=== PATIENT | female | born 1995 | race Two or more races ===

== ENCOUNTER 2017-02-16 20:34 | Emergency (ER) | payer SELFPAY ==
[2017-02-16 20:42] VITALS: BP 161/96
--- NOTE | 2017-02-16 21:12 | PHYS DOC ---
Past Medical History Past Medical History: Asthma Past Surgical History: No Surgical History Smoking: Cigarettes Alcohol Use: Occasionally Drug Use: None Adult General Chief Complaint Chief Complaint: ABDOMINAL PAIN HPI HPI Patient is a 21 year old female who presents with mild vaginal bleeding starting today with pelvic pain and low back pain. Her last period was on . She usually has very regular menstrual cycles. The bleeding she had today was very mild and has not continued. She has had occasional vaginal discharge. She denies nausea, vomiting, diarrhea, fever, or urinary symptoms. She is sexually active with stable monogamous partner but does not use control or condoms. She is . She does not have a PCP. Her OB doctor is Dr. Wright. Review of Systems Review of Systems Constitutional: Denies fever or chills. [] GI: Denies abdominal pain, nausea, vomiting, bloody stools or diarrhea. [] : Denies dysuria, hematuria or urinary frequency. Reports vaginal bleeding, pelvic pain, and vaginal discharge. Musculoskeletal: Denies joint pain. Reports low-back pain. Integument: Denies rash or skin lesions. [] Neurologic: Denies headache, focal weakness or sensory changes. [] All systems reviewed and negative unless otherwise stated in the HPI. Allergies Allergies Allergies Coded Allergies Type Severity Reaction Last Updated Verified No Known Drug Allergies 11/16/14 No Physical Exam Physical Exam Constitutional: Well developed, well nourished, no acute distress, non-toxic appearance. [] HENT: Normocephalic, atraumatic, oropharynx moist. [] Eyes: PERRLA, EOMI, conjunctiva normal, no discharge. [] Neck: Normal range of motion, no tenderness, supple, no stridor. [] Cardiovascular: Heart rate regular rhythm, no murmur. [] Lungs & Thorax: Bilateral breath sounds clear to auscultation without wheezes, rales, or rhonchi. [] Abdomen: Bowel sounds normal, soft, suprapubic tenderness, no masses, no pulsatile masses. 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 Normal external genitalia. There is mild bleeding from the cervical os. The cervical os is closed. There is no discharge. There is no cervicitis or CMT. There is no adnexal mass or tenderness. Skin: Warm, dry, no erythema, no rash. [] Back: No midline tenderness, no CVA tenderness. [] Extremities: No tenderness, ROM intact, no edema. Distal pulses equal bilaterally. [] Neurologic: Alert and oriented X 3, normal motor function, normal sensory function, no focal deficits noted. [] Psychologic: Affect normal, judgement normal, mood normal. [] Current Patient Data Vital Signs Vital Signs Date Time Temp Pulse Resp B/P Pulse Ox O2 Delivery O2 Flow Rate FiO2 02/16/17 20:42 97.6 96 18 161/96 100 Room Air 97.6 Lab Values Laboratory Tests Test 02/16/17 20:50 Urine Collection Type Unknown Urine Color Yellow Urine Clarity Cloudy Urine pH 7.0 Urine Specific [place] 1.020 Urine Protein Tracemg/dL (NEG-TRACE) Urine Glucose (UA) Negativemg/dL (NEG) Urine Ketones (Stick) Negativemg/dL (NEG) Urine Blood Large (NEG) Urine Nitrite Positive (NEG) Urine Bilirubin Negative (NEG) Urine Urobilinogen Dipstick 1.0mg/dL (0.2 mg/dL) Urine Leukocyte Esterase Small (NEG) Urine RBC 3-5/HPF (0-2) Urine WBC 5-10/HPF (0-4) Urine Squamous Epithelial Cells Mod/LPF Urine Bacteria Many/HPF (0-FEW) Urine Mucus Slight/LPF Microbiology 02/16/17 Wet Prep - Final, Complete WET PREP Final YEAST NONE SEEN TRICHOMONAS NONE SEEN CLUE CELLS NONE SEEN WBCS OCCASIONAL RBCS MANY SQUAMOUS EPS FEW EKG EKG [] Radiology/Procedures Radiology/Procedures [] Course & Med Decision Making Course & Med Decision Making Pertinent Labs and Imaging studies reviewed. (See chart for details) Patient presents with mild vaginal bleeding with pelvic pain and low back pain starting today. On exam, her abdomen is soft and nonsurgical with suprapubic tenderness. There is mild bleeding on pelvic exam without cervicitis, CMT, or adnexal tenderness. The os is closed. Urine hCG is negative. UA is positive for infection. Wet mount is negative. She denies concern for STDs. Patient is discharged home with prescription for Cipro. She is instructed to follow-up for recheck of her urine after completion of the antibiotic. She is instructed to follow-up with her insurance producer for any other abnormal bleeding. Return precautions were discussed. She verbalizes understanding and agrees with plan. Dragon Disclaimer Cheryl Disclaimer This electronic medical record was generated, in whole or in part, using a voice recognition dictation system. Departure Departure Impression: Primary Impression: UTI (urinary tract infection) Disposition: 01 HOME, SELF-CARE Condition: STABLE Referrals: UNKNOWN PCP NAME (PCP) Patient Instructions: Urinary Tract Infection, [id number] Additional Instructions: Your urine was positive for infection. Your pelvic exam was negative for yeast, bacteria, or Trichomonas. Your bleeding appears to be caused by your menstrual cycle, however later than your usual cycle. Please complete all of the prescribed antibiotics for your urinary tract infection. Follow-up for recheck of your urine after completion of the antibiotic. Please follow-up with your insurance producer if you have continued abnormal bleeding. Return to the emergency department if you have any new or concerning symptoms. Scripts Ciprofloxacin Hcl (Cipro)500 Mg Tablet1 Tab PO BID 5 Days Prov:CONCHIS BARTLETT 02/16/17 Problem Qualifiers Primary Impression: UTI (urinary tract infection) Urinary tract infection type: acute cystitis Hematuria presence: without hematuria Qualified Code: N30.00 - Acute cystitis without hematuria CONCHIS BARTLETT Feb 16, 2017 21:12
[2017-02-16 21:45] LABS: BILIRUBIN,URINE NEGATIVE (NEG); GLUCOSE,URINE NEGATIVE (NEG)
[2017-02-16 21:46] LABS: BACTERIA,URINE MANY /HPF (0-FEW); NITRITE,URINE POSITIVE (NEG); PROTEIN,URINE TRACE mg/dL (NEG-TRACE); SQUAMOUS EPITHELIAL CELL,UR MOD /LPF
[2017-02-16] MEDS ORDERED: CIPR500T94 PO (22:39)
== END 2017-02-16 22:49 | disposition home or self-care (01) ==
LOC: ER 20:34
DX: N39.0 Urinary tract infection, site not specified (principal); J45.909 Unspecified asthma, uncomplicated; F17.210 Nicotine dependence, cigarettes, uncomplicated
CPT/HCPCS: 81001; 81025; 87086; 87491; 87591; 99284; Q0111

== ENCOUNTER 2017-10-25 13:05 | Emergency (ER) | payer SELFPAY ==
[~2017-10-25] VITALS: Ht 157.5 cm; Wt 131.5 kg
[~2017-10-25 13:05] MED LIST: CIPR500T94 PO
[2017-10-25 13:23] VITALS: BP 116/76
[2017-10-25] MEDS ORDERED: LIDO:MAALOX:DONNATAL 1:1:1 15 ML SINGLE DOSE SWSW ONE (13:30)
[2017-10-25] MEDS ORDERED: OMEP20CA9 PO (13:57)
--- NOTE | 2017-10-25 13:58 | PHYS DOC ---
Past Medical History Past Medical History: Asthma, GERD Past Surgical History: No Surgical History Alcohol Use: Occasionally Drug Use: None Adult General Chief Complaint Chief Complaint: HEARTBURN/GI DISTRESS [facility] HPI Patient is a 22 year old female with history of acid reflex presenting today with heartburn began a couple minutes prior to coming to the ED. Patient does not take any anti-acids Review of Systems Review of Systems Constitutional: Denies fever or chills [] Eyes: Denies change in visual acuity, redness, or eye pain [] HENT: Denies nasal congestion or sore throat [] Respiratory: Denies cough or shortness of breath [] Cardiovascular: No additional information not addressed in HPI [] GI: heartburn denies nausea, vomiting, bloody stools or diarrhea [] : Denies dysuria or hematuria [] Musculoskeletal: Denies back pain or joint pain [] Integument: Denies rash or skin lesions [] Neurologic: Denies headache, focal weakness or sensory changes [] All other systems were reviewed and found to be within normal limits, except as documented in this note. Current Medications Current Medications Current Medications Medications (Trade) Dose Ordered Sig/Sangeeta Start Time Stop Time Status Last Admin Dose Admin Multi-Ingredient Mouthwash/Gargle (Gi Cocktail Single Dose) 15 ml 1X ONCE 10/25/17 13:30 10/25/17 13:33 DC 10/25/17 13:39 15 ML Allergies Allergies Allergies Coded Allergies Type Severity Reaction Last Updated Verified No Known Drug Allergies 11/16/14 No Physical Exam Physical Exam Constitutional: Well developed, well nourished, no acute distress, non-toxic appearance. [] HENT: Normocephalic, atraumatic, bilateral external ears normal, oropharynx moist, no oral exudates, nose normal. [] Eyes: PERRLA, EOMI, conjunctiva normal, no discharge. [] Neck: Normal range of motion, no tenderness, supple, no stridor. [] Cardiovascular:Heart rate regular rhythm, no murmur [] Lungs & Thorax: Bilateral breath sounds clear to auscultation [] Abdomen: Bowel sounds normal, soft, no tenderness, no masses, no pulsatile masses. [] Skin: Warm, dry, no erythema, no rash. [] Back: No tenderness, no CVA tenderness. [] Extremities: No tenderness, no cyanosis, no clubbing, ROM intact, no edema. [] Neurologic: Alert and oriented X 3, normal motor function, normal sensory function, no focal deficits noted. [] Psychologic: Affect normal, judgement normal, mood normal. [] Current Patient Data Vital Signs Vital Signs Date Time Temp Pulse Resp B/P (MAP) Pulse Ox O2 Delivery O2 Flow Rate FiO2 10/25/17 13:23 98.1 78 18 97 Room Air 98.1 EKG EKG [] Radiology/Procedures Radiology/Procedures [] Course & Med Decision Making Course & Med Decision Making Pertinent Labs and Imaging studies reviewed. (See chart for details) Patient is in the ED with chronic heart burn. She was given GI cocktail. She was discharged with omeprazole. We talked about diet and exercise and following up with a GI doctor chronic heartburn. Dragon Disclaimer Dragon Disclaimer This electronic medical record was generated, in whole or in part, using a voice recognition dictation system. Departure Departure Impression: Primary Impression: Acid reflux Disposition: HOME, SELF-CARE Condition: STABLE Referrals: NO PCP (PCP) ROMAN SWAN MD follow up in one week Patient Instructions: Diet for Gastroesophageal Reflux Disease, Adult, Gastroesophageal Reflux Disease, Adult, [id number] Additional Instructions: You were seen with symptoms consistent of heartburn. You need to take an anti- acid daily like omeprazole. Consider diet that is avoiding spicy fatty foods and exercise. We provided you a automatic presser, call the office and set up a follow-up appointment. Scripts Omeprazole (OMEPRAZOLE) 20 Mg Capsule.dr 1 CAP PO DAILY, #30 CAP 5 Refills Prov: PIYUSH TIMMONS APRN 10/25/17 Problem Qualifiers Primary Impression: Acid reflux Esophagitis presence: esophagitis presence not specified Qualified Codes: K21.9 - Gastro-esophageal reflux disease without esophagitis PIYUSH TIMMONS APRN Oct 25, 2017 13:57
== END 2017-10-25 14:03 | disposition home or self-care (01) ==
LOC: ER 13:05
DX: K21.9 Gastro-esophageal reflux disease without esophagitis (principal); J45.909 Unspecified asthma, uncomplicated
CPT/HCPCS: 99282

== ENCOUNTER 2018-03-21 16:20 | Emergency (ER) | payer OTHER | END 2018-03-21 17:33 | disposition home or self-care (01) | LOC: ER 16:20 | DX: L02.416 Cutaneous abscess of left lower limb (principal); K21.9 Gastro-esophageal reflux disease without esophagitis; J45.909 Unspecified asthma, uncomplicated | CPT/HCPCS: 99283 ==

== ENCOUNTER 2018-07-09 19:44 | Emergency (ER) | payer OTHER ==
[~2018-07-09] VITALS: Ht 157.5 cm; Wt 136.1 kg
[~2018-07-09 19:44] MED LIST changes: +OMEP20CA9 PO; +SULF1TAB24 PO
[2018-07-09 20:15] VITALS: BP 105/56
[2018-07-09] MEDS ORDERED: ERYT1OIN6 OP (20:19)
--- NOTE | 2018-07-09 20:19 | PHYS DOC ---
Past Medical History Past Medical History: Asthma, GERD Past Surgical History: No Surgical History Alcohol Use: Occasionally Drug Use: None Adult General Chief Complaint Chief Complaint: EYE PROBLEMS HPI HPI Patient is a 22 year old female presents to the ED complaining of right eye green discharge 2 days. Patient states her was diagnosed with pink eye. States she has similar symptoms in her right eye. Woke up with her eye crusted over. Patient wears glasses. Does not wear contacts. Denies foreign body sensation, vision changes, eye pain, nausea/vomiting, fever, dizziness or weakness. Review of Systems Review of Systems Constitutional: Denies fever or chills [] Eyes: Complains of right eye green drainage. Denies change in visual acuity, redness, or eye pain [] HENT: Denies nasal congestion or sore throat [] Respiratory: Denies cough or shortness of breath [] Cardiovascular: No additional information not addressed in HPI [] GI: Denies abdominal pain, nausea, vomiting, bloody stools or diarrhea [] Integument: Denies rash or skin lesions [] Neurologic: Denies headache, focal weakness or sensory changes [] All other systems were reviewed and found to be within normal limits, except as documented in this note. Allergies Allergies Allergies Coded Allergies Type Severity Reaction Last Updated Verified No Known Drug Allergies 11/16/14 No Physical Exam Physical Exam Constitutional: Well developed, well nourished, no acute distress, non-toxic appearance. [] HENT: Normocephalic, atraumatic, bilateral external ears normal, right eye conjunctival injection with green discharge. Oropharynx moist, no oral exudates , nose normal. [] Eyes: PERRLA, EOMI, conjunctiva normal, no discharge. [] Neck: Normal range of motion, no tenderness, supple, no stridor. [] Cardiovascular:Heart rate regular rhythm, no murmur [] Lungs & Thorax: Bilateral breath sounds clear to auscultation [] Skin: Warm, dry, no erythema, no rash. [] Neurologic: Alert and oriented X 3, normal motor function, normal sensory function, no focal deficits noted. [] Psychologic: Affect normal, judgement normal, mood normal. [] EKG EKG [] Radiology/Procedures Radiology/Procedures [] Course & Med Decision Making Course & Med Decision Making Pertinent Labs and Imaging studies reviewed. (See chart for details) [] Dragon Disclaimer Dragon Disclaimer This electronic medical record was generated, in whole or in part, using a voice recognition dictation system. Departure Departure Impression: Primary Impression: Conjunctivitis Disposition: 01 HOME, SELF-CARE Condition: STABLE Referrals: NO PCP (PCP) REBECCA SIMPSON MD Patient Instructions: Bacterial Conjunctivitis Scripts Erythromycin Base (Erythromycin) 1 Gm Oint...g. 1 GM OP 6XDAY for 7 Days, #1 TUBE Prov: BEVERLY CISSE 07/09/18 BEVERLY CISSE Jul 09, 2018 20:19
== END 2018-07-09 20:31 | disposition home or self-care (01) ==
LOC: ER 19:44
DX: H10.9 Unspecified conjunctivitis (principal); K21.9 Gastro-esophageal reflux disease without esophagitis; J45.909 Unspecified asthma, uncomplicated
CPT/HCPCS: 99283

== ENCOUNTER 2020-06-01 01:02 | Emergency (ER) | payer BC, OTHER ==
[~2020-06-01] VITALS: Ht 160 cm; Wt 152.7 kg
[~2020-06-01 01:02] MED LIST changes: +ERYT1OIN6 OP; +OMEP20CA16 PO; -OMEP20CA9 PO
[2020-06-01 02:05] LABS: BASO # 0.1 x10^3/uL (0.0-0.2); BASO % 1 % (0-3); EOS % 0 % (0-3); HEMATOCRIT 40.7 % (36.0-47.0); HEMOGLOBIN 13.7 g/dL (12.0-15.5); LYMPH # 1.4 x10^3/uL (1.0-4.8); LYMPH % 31 % (24-48); MEAN CORPUSCULAR HEMOGLOBIN 28 pg (25-35); MEAN CORPUSCULAR HGB CONC 34 g/dL (31-37); MEAN CORPUSCULAR VOLUME 83 fL (79-100); MONO # 0.2 x10^3/uL (0.0-1.1); MONO % 5 % (0-9); NEUT # 2.8 x10^3/uL (1.8-7.7); NEUT % 63 % (31-73); PLATELET COUNT 265 x10^3/uL (140-400); RED BLOOD COUNT 4.92 x10^6/uL (3.50-5.40); RED CELL DISTRIBUTION WIDTH 13.2 % (11.5-14.5); WHITE BLOOD COUNT 4.5 x10^3/uL (4.0-11.0)
[2020-06-01] MEDS ORDERED: ACETAMINOPHEN 325 MG TABLET. PO ONE (02:15)
[2020-06-01 02:18] LABS: CALCIUM 8.2 mg/dL (8.5-10.1); CREATININE 1.2 mg/dL (0.6-1.0); GFR 55.7; POTASSIUM 3.3 mmol/L (3.5-5.1)
[2020-06-01 02:22] LABS: ALBUMIN 3.1 g/dL (3.4-5.0); ALBUMIN/GLOBULIN RATIO 0.7 (1.0-1.7); TOTAL BILIRUBIN 0.3 mg/dL (0.2-1.0); TOTAL PROTEIN 7.5 g/dL (6.4-8.2)
--- NOTE | 2020-06-01 02:48 | RAD ---
CHEST AP ONLY INDICATION: Reason: sob / Spl. Instructions: / History: . COMPARISON STUDY: None. FINDINGS: Lungs: Low lung volume. No pulmonary mass or consolidation. The tracheobronchial tree and hilar structures are normal. Pleura: No pleural effusion or pneumothorax. Heart and Mediastinum: The cardiomediastinal silhouette is normal. The great vessels of the thorax are normal. IMPRESSION: Low lung volume. No consolidation. Electronically signed by: Titi Kendall MD (06/01/2020 2:45 AM) [facility]
[2020-06-01] MEDS ORDERED: ALBU2.5V8 IH (03:31)
[2020-06-01] MEDS ORDERED: BENZ100C PO (03:31)
--- NOTE | 2020-06-01 03:31 | PHYS DOC ---
Past Medical History Past Medical History: Asthma Additional Past Medical Histor: MORBID OBESITY Past Surgical History: No Surgical History Smoking Status: Never Smoker Alcohol Use: None Drug Use: None General Adult EDM: Chief Complaint: SHORTNESS OF BREATH HPI: HPI: Patient is a 24 year old female presents to the ED with a chief complaint of fever and cough. Patient states that she was tested for COVID on May 27 and the result was positive on May 29. Patient states that she does have a history of asthma. Patient states that she is out of her pro-air. Patient states that she is got fever at home and she is taking Tylenol and Motrin for fever control. Patient was concerned due to the cough and wanted to have it checked out in the ER. Review of Systems: Review of Systems: Constitutional: Complains of fever [] Eyes: Denies change in visual acuity. [] HENT: Denies nasal congestion or sore throat. [] Respiratory: Complains of cough [] Cardiovascular: Denies chest pain or edema. [] GI: Denies abdominal pain, nausea, vomiting, bloody stools or diarrhea. [] : Denies dysuria. [] Musculoskeletal: Denies back pain or joint pain. [] Neurologic: Denies headache, focal weakness or sensory changes. [] Heart Score: Risk Factors: Risk Factors: DM, Current or recent (<one month) smoker, HTN, HLP, family history of CAD, obesity. Risk Scores: Score 0 - 3: 2.5% MACE over next 6 weeks - Discharge Home Score 4 - 6: 20.3% MACE over next 6 weeks - Admit for Clinical Observation Score 7 - 10: 72.7% MACE over next 6 weeks - Early Invasive Strategies Current Medications: Current Medications Medications (Trade) Dose Ordered Sig/[facility] Start Time Stop Time Status Last Admin Dose Admin Acetaminophen (Tylenol) 650 mg 1X ONCE 06/01/20 02:15 06/01/20 02:16 DC Allergies: Allergies: Allergies Coded Allergies Type Severity Reaction Last Updated Verified No Known Drug Allergies 11/16/14 No Physical Exam: PE: Constitutional: Well developed, well nourished, no acute distress, non-toxic appearance. [] HENT: Normocephalic, atraumatic Eyes: EOMI Neck: Normal range of motion, Supple Cardiovascular:Heart rate regular rhythm Lungs & Thorax: Bilateral rhonchi [] Abdomen: Bowel sounds normal, soft, no tenderness Extremities: No tenderness, ROM intact Neurologic: Alert and oriented X 3 Current Patient Data: Labs: Laboratory Tests Test 06/01/20 01:25 White Blood Count 4.5 x10^3/uL (4.0-11.0) Red Blood Count 4.92 x10^6/uL (3.50-5.40) Hemoglobin 13.7 g/dL (12.0-15.5) Hematocrit 40.7 % (36.0-47.0) Mean Corpuscular Volume 83 fL (79-100) Mean Corpuscular Hemoglobin 28 pg (25-35) Mean Corpuscular Hemoglobin Concent 34 g/dL (31-37) Red Cell Distribution Width 13.2 % (11.5-14.5) Platelet Count 265 x10^3/uL (140-400) Neutrophils (%) (Auto) 63 % (31-73) Lymphocytes (%) (Auto) 31 % (24-48) Monocytes (%) (Auto) 5 % (0-9) Eosinophils (%) (Auto) 0 % (0-3) Basophils (%) (Auto) 1 % (0-3) Neutrophils # (Auto) 2.8 x10^3/uL (1.8-7.7) Lymphocytes # (Auto) 1.4 x10^3/uL (1.0-4.8) Monocytes # (Auto) 0.2 x10^3/uL (0.0-1.1) Eosinophils # (Auto) 0.0 x10^3/uL (0.0-0.7) Basophils # (Auto) 0.1 x10^3/uL (0.0-0.2) Sodium Level 138 mmol/L (136-145) Potassium Level 3.3 mmol/L (3.5-5.1) L Chloride Level 100 mmol/L (98-107) Carbon Dioxide Level 27 mmol/L (21-32) Anion Gap 11 (6-14) Blood Urea Nitrogen 11 mg/dL (7-20) Creatinine 1.2 mg/dL (0.6-1.0) H Estimated GFR (Cockcroft-Gault) 55.7 BUN/Creatinine Ratio 9 (6-20) Glucose Level 265 mg/dL (70-99) H Lactic Acid Level 2.1 mmol/L (0.4-2.0) H Calcium Level 8.2 mg/dL (8.5-10.1) L Total Bilirubin 0.3 mg/dL (0.2-1.0) Aspartate Amino Transferase (AST) 107 U/L (15-37) H Alanine Aminotransferase (ALT) 75 U/L (14-59) H Alkaline Phosphatase 81 U/L (46-116) Troponin I Quantitative < 0.017 ng/mL (0.000-0.055) NN-Yuf-C-Type Natriuretic Peptide 11 pg/mL (0-124) Total Protein 7.5 g/dL (6.4-8.2) Albumin 3.1 g/dL (3.4-5.0) L Albumin/Globulin Ratio 0.7 (1.0-1.7) L Laboratory Tests 06/01/20 01:25 Laboratory Tests 06/01/20 01:25 Vital Signs: Vital Signs Date Time Temp Pulse Resp B/P (MAP) Pulse Ox O2 Delivery O2 Flow Rate FiO2 06/01/20 01:35 101.3 109 20 153/87 (109) 95 Room Air 101.3 EKG: EKG: [EKG interpretation: 3: 49 AM on 06/01/2020 HR: 100 Sinus rhythm Regular intervals Normal axis Nonspecific ST changes No STEMI ] Radiology/Procedures: Radiology/Procedures: [] Impression: CXR IMPRESSION: Low lung volume. No consolidation. Course & Med Decision Making: Course & Med Decision Making Pertinent Labs and Imaging studies reviewed. (See chart for details) Labs are within normal limits except potassium which is 3.3. Potassium replaced in the ER. Chest x-ray does not show any acute cardiopulmonary process. Troponin is negative. Patient be discharged home with prescription for pro-air and Tessalon Perles. Patient is instructed to self quarantine for 14 days Discussed results and plan of care with patient. Patient is instructed to follow up with PCP in one to 2 days. Appropriate discharge instructions given to patient to return to the ED or to seek immediate medical evaluation. Patient is instructed to return to the ED if symptoms worsen or if any concerns. Dragon Disclaimer: Dragon Disclaimer: This electronic medical record was generated, in whole or in part, using a voice recognition dictation system. Departure Departure Impression: Primary Impression: COVID-19 virus infection Disposition: HOME, SELF-CARE Condition: IMPROVED Referrals: NO PCP (PCP) Patient Instructions: Cough, Adult, Shortness of Breath Additional Instructions: Discussed results and plan of care with patient. Patient is instructed to follow up with PCP in one to 2 days. Appropriate discharge instructions given to patient to return to the ED or to seek immediate medical evaluation. Patient is instructed to return to the ED if symptoms worsen or if any concerns. Scripts Benzonatate (TESSALON PERLE) 100 Mg Capsule 1 CAP PO TID, #30 CAP Prov: GABINO WEBER DO 06/01/20 Albuterol Sulfate (PROAIR HFA INHALER) 8.5 Gm Hfa.aer.ad 2 PUFF IH PRN Q4-6HRS PRN for wheezing for 21 Days, #1 INHALER 0 Refills Prov: GABINO WEBER DO 06/01/20 Justicifation of Admission Dx: Justifications for Admission: Justification of Admission Dx: GABINO Ferraro DO Jun 01, 2020 03:31
[2020-06-01 03:46] VITALS: BP 166/91
[2020-06-01] MEDS ORDERED: BENZONATATE 100 MG CAPSULE. PO ONE (04:00)
[2020-06-01] MEDS ORDERED: POTASSIUM CHLORIDE 20 MEQ TABLET.ER. PO ONE (04:00)
--- NOTE | 2020-06-03 06:59 | EKG ---
[facility] [address] [place] [address] Test Date: 2020-06-01 Test Time: 03:49:40 Pat Name: DANIEL REICNOS Department: Room: Gender: F Adjunct Psychology Faculty Member: : 1995 Requested By: GABINO WEBER Order Number: [id number] Reading MD: Measurements Intervals Clancy Rate: 100 P: 22 VA: 134 QRS: 10 QRSD: 84 T: 5 QT: 334 QTc: 434 Interpretive Statements SINUS RHYTHM NORMAL ECG RI6.02 No previous ECG available for comparison
== END 2020-06-01 04:05 | disposition home or self-care (01) ==
LOC: ER 01:02
DX: U07.1 COVID-19 (principal); R50.9 Fever, unspecified; R05 Cough; J45.909 Unspecified asthma, uncomplicated; E66.01 Morbid (severe) obesity due to excess calories; Z68.43 Body mass index [BMI] 50.0-59.9, adult
CPT/HCPCS: 36415; 71045; 80053; 83605; 83880; 84484; 85025; 87040; 93005; 99285

== ENCOUNTER 2022-04-21 20:03 | Emergency (ER) | payer BC ==
[~2022-04-21] VITALS: Ht 157.5 cm; Wt 156.0 kg
[~2022-04-21 20:03] MED LIST changes: +ALBU2.5V8 IH; +BENZ100C PO
[2022-04-21 20:10] VITALS: BP 164/67
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
[2022-04-21] MEDS ORDERED: LIDOCAINE (700MG/PATCH) PATCH. TD ONE (20:30)
[2022-04-21] MEDS ORDERED: ACETAMINOPHEN 325 MG TABLET. PO ONE (20:30)
[2022-04-21] MEDS ORDERED: ACET325T9 PO (21:52)
[2022-04-21] MEDS ORDERED: LIDO700A21 TP (21:52)
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
== END 2022-04-21 21:55 | disposition home or self-care (01) ==
LOC: ER 20:03
DX: O26.891 Other specified pregnancy related conditions, first trimester (principal); M54.50 Low back pain, unspecified; J45.909 Unspecified asthma, uncomplicated; Z68.44 Body mass index [BMI] 60.0-69.9, adult; E66.01 Morbid (severe) obesity due to excess calories; Z3A.14 14 weeks gestation of pregnancy
CPT/HCPCS: 76815; 99284